=== PATIENT | female | born 1955 ===

== ENCOUNTER 2017-11-04 10:40 | Emergency (ER) | payer OTHER ==
[2017-11-04 10:55] VITALS: O2SAT 97; BMI 42.4
[2017-11-04] MEDS ORDERED: Sodium Chloride 0.9% 500 ML IV ONE (11:46)
--- NOTE | 2017-11-04 11:59 | C.PDOC ---
History Of Present Illness 62 year old female presents to the emergency department with complaints of left upper quadrant and left flank pain persisting for the past week. Patient reports that she has not visited an ED, a physician, or taken any medications in over a year. Patient reports that her pain is persisting, stating it happens "every day, all day" and she qualifies is at sharp and stinging, reporting occasional itching but no rash. She denies headache, nausea, vomiting, chest pain, shortness of breath, diarrhea, dysuria, and hematuria. Time Seen by Provider: 11/04/17 11:22 Chief Complaint (Nursing): Abdominal Pain History Per: Patient History/Exam Limitations: no limitations Onset/Duration Of Symptoms: Days (7) Current Symptoms Are (Timing): Still Present Location Of Pain/Discomfort: LUQ Quality Of Discomfort: Sharp, Stabbing, "Pain" Associated Symptoms: Back Pain (left flank pain). denies: Nausea, Vomiting, Diarrhea, Chest Pain, Urinary Symptoms, Other (shortness of breath) Past Medical History Reviewed: Historical Data, Nursing Documentation, Vital Signs Vital Signs: Last Vital Signs Temp 98.4 F 11/04/17 10:51 Pulse 74 11/04/17 10:51 Resp 18 11/04/17 10:51 BP 140/81 11/04/17 10:51 Pulse Ox 97 11/04/17 12:14 - Medical History PMH: No Chronic Diseases Surgical History: No Surg Hx Family History: States: No Known Family Hx - Social History Hx Alcohol Use: No Hx Substance Use: No - Immunization History Hx Tetanus Toxoid Vaccination: No Hx Influenza Vaccination: No Hx Pneumococcal Vaccination: No Review Of Systems Except As Marked, All Systems Reviewed And Found Negative. Constitutional: Negative for: Fever Respiratory: Negative for: Shortness of Breath Gastrointestinal: Positive for: Abdominal Pain (LUQ). Negative for: Nausea, Vomiting, Diarrhea Genitourinary: Negative for: Dysuria, Hematuria Musculoskeletal: Positive for: Back Pain (left flank pain) Neurological: Negative for: Headache Physical Exam - Physical Exam Appears: Non-toxic, No Acute Distress Skin: Warm, Dry Head: Atraumatic, Normacephalic Eye(s): bilateral: Normal Inspection Nose: Normal Neck: Normal, Supple Chest: Symmetrical Cardiovascular: Rhythm Regular, No Murmur Respiratory: Normal Breath Sounds, No Rales, No Rhonchi, No Wheezing Gastrointestinal/Abdominal: Soft, Tenderness (LUQ), No Guarding, No Rebound Back: CVA Tenderness (mild ) Extremity: Normal ROM, No Tenderness Neurological/Psych: Oriented x3, Normal Speech, Normal Cognition ED Course And Treatment - Laboratory Results Result Diagrams: 11/04/17 12:20 11/04/17 12:20 O2 Sat by Pulse Oximetry: 97 (RA) Pulse Ox Interpretation: Normal Medical Decision Making Medical Decision Making: Plan: CMP CBC NaCl IV Fluids XR Abdomen Disposition - Disposition Referrals: [facility] [Outside] Disposition: HOME/ ROUTINE Disposition Time: 13:25 Condition: STABLE Prescriptions: Polyethylene Glycol 3350 [Miralax] 17 gm PO DAILY #15 packet Wheat Dextrin [Benefiber] 1 each PO DAILY #15 powd.pack Instructions: Constipation, Adult (DC) Forms: [facility] (Wolof), General Discharge Instructions - POA Present On Arrival: None - Clinical Impression Clinical Impression: Diabetes, Constipation, Hyperglycemia - Scribe Statement The provider has reviewed the documentation as recorded by the Scribe (Jere Oquendo) Provider Attestation: All medical record entries made by the Scribe were at my direction and personally dictated by me. I have reviewed the chart and agree that the record accurately reflects my personal performance of the history, physical exam, medical decision making, and the department course for this patient. I have also personally directed, reviewed, and agree with the discharge instructions and disposition.
[2017-11-04 12:24] LABS: BASO # 0.1 K/uL (0.0-0.2); BASO % 0.9 % (0.0-2.0); EOS # 0.2 K/uL (0.0-0.7); EOS % 2.8 % (0.0-4.0); HEMOGLOBIN 13.5 g/dL (11.0-16.0); LYMPH # 2.2 K/uL (1.0-4.3); LYMPH % 33.5 % (20.0-40.0); MEAN CELL VOLUME 89.4 fL (81.0-99.0); MEAN CORPUSCULAR HEMOGLOBIN 30.7 pg (27.0-31.0); MEAN CORPUSCULAR HGB CONC 34.3 g/dL (33.0-37.0); MEAN PLATELET VOLUME 9.3 fL (7.2-11.7); MONO # 0.5 K/uL (0.0-0.8); MONO % 7.3 % (0.0-10.0); NEUT # 3.7 K/uL (1.8-7.0); NEUT % 55.5 % (50.0-75.0); NRBC % 0.1 % (0.0-2.0); RBC 4.41 Mil/uL (3.80-5.20); RED CELL DISTRIBUTION WIDTH 14.4 % (11.5-14.5); WHITE BLOOD COUNT 6.6 K/uL (4.8-10.8)
[2017-11-04 12:36] LABS: ALB/GLOB RATIO 1.4 (1.0-2.1); ALT/SGPT 20 U/L (9-52); AST/SGOT 19 U/L (14-36); BLOOD UREA NITROGEN 13 mg/dL (7-17); CALCIUM 9.1 mg/dl (8.6-10.4); GFR AFRICAN-AMERICAN > 60; GFR NON-AFRICAN AMERICAN > 60
--- NOTE | 2017-11-04 12:47 | RAD ---
Abdomen two views History: Abdominal pain. Comparison: None available. Findings: Moderate fecal retention in the colon. No evidence of gross obstruction. Calcified phleboliths in the pelvis. Osteitis pubis. Degenerative changes in the spine and hips. Impression: Moderate fecal retention in the colon.
[2017-11-04 13:49] VITALS: PULSE 88; RESP 20
[2017-11-04 13:52] VITALS: BP 127/88; TEMP 98
== END 2017-11-04 13:50 | disposition home or self-care (01) ==
LOC: C.ER 10:40
DX: E11.65 Type 2 diabetes mellitus with hyperglycemia (principal); K59.00 Constipation, unspecified